=== PATIENT | male | born 1990 | race Caucasian/White ===

== ENCOUNTER 2017-12-19 12:48 | Emergency (ER) | payer SELFPAY ==
[~2017-12-19] VITALS: Ht 177.8 cm; Wt 90.7 kg
--- OUTSIDE RECORDS SUMMARY | 2017-12-19 14:13 | XMS ---
PreManage Notification: KALE CANO Security Log Tumbler Events No recent Security Events currently on file CRITERIA MET - [facility] - 2 Visits in 30 Days CARE PROVIDERS AMY TIERNEY Primary Care Current PHONE: [phone] Eitan has no Care Guidelines for this patient. E.D. VISIT COUNT (12 MO.) [address] [place] [address] Tiffani Nash [address] [place] [address] TOTAL 3 NOTE: Visits indicate total known visits. ED/UCC VISIT TRACKING (12 MO.) 12/19/2017 12:49 LAURENT Grimaldo TYPE: Emergency COMPLAINT: - CHEST PAIN/SOB 11/19/2017 13:15 [facility] [place] MARGIE TYPE: Emergency DIAGNOSES: - headache, nausea - Unspecified asthma, uncomplicated - Fatigue - Headache (Adult - New Onset Or New Symptoms) - Nausea 05/19/2017 15:43 [facility] Hanny HANSON TYPE: Emergency DIAGNOSES: - Blood in Stool - Melena INPATIENT VISIT TRACKING (12 MO.) No inpatient visits to display in this time frame [email or web address]
[2017-12-19] MEDS ORDERED: IBUPROFEN600 MG PO (17:51)
--- NOTE | 2017-12-19 21:00 | EKG ---
[facility] [address] [facility] [place], [place] [address] Signed Normal sinus rhythm Normal ECG No previous ECGs available Confirmed by CARLENE VILLARREAL MD ([id number]) on 12/19/2017 9:00:47 PM Electronically Signed By: CARLENE VILLARREAL MD 12/19/17 2100 PATIENT NAME: KALE CANO Electrocardiogram DATE OF : 89 PHYSICIAN: CARLENE VILLARREAL MD REPORT #: [id number] REPORT IS CONFIDENTIAL AND NOT TO BE RELEASED WITHOUT AUTHORIZATION
== END 2017-12-19 18:05 | disposition home or self-care (01) ==
LOC: ED 12:48
DX: R07.89 Other chest pain (principal); D72.829 Elevated white blood cell count, unspecified; Z87.891 Personal history of nicotine dependence
CPT/HCPCS: 71045; 71260; 76705; 80053; 81001; 83605; 84484; 85025; 93005; 93010; 96374; 99285; J1885; Q9967